=== PATIENT | male | born 1960 | race Caucasian/White ===

== ENCOUNTER 2016-09-22 10:54 | Emergency (ER) | payer OTHER ==
[~2016-09-22] VITALS: Ht 175.3 cm; Wt 81.7 kg
[~2016-09-22 10:54] MED LIST: NO HOME MEDS PO; NORCO 5/3251 TABLET PO; PERCOCET 5/31 TABLET PO
[2016-09-22] MEDS ORDERED: CLONAZEPAM1 MG PO (11:02)
[2016-09-22] MEDS ORDERED: OXYCODONE HCL10 MG PO (11:02)
[2016-09-22] MEDS ORDERED: METOPROLOL SUCC50 MG PO (11:02)
[2016-09-22] MEDS ORDERED: ZOLPIDEM TARTRA10 MG PO (11:02)
[2016-09-22 11:56] LABS: EOSINOPHIL COUNT 0.2 K/uL (0-0.3); HEMATOCRIT 54.4 % (38.0-50.0); IMMATURE GRANULOCYTE (%) 0.7 % (0.0-0.7); IMMATURE GRANULOCYTE COUNT 0.1 K/uL; INSTRUMENT ABS NEUTROPHIL CT 4.3 K/uL; LYMPHOCYTE COUNT 1.4 K/uL (1.0-2.8); MCH 32.6 PG (29.0-34.0); MCHC 34.2 G/DL (30.0-36.0); MCV 95.3 FL (86-99); MEAN PLAT.VOLUME 11.6 uM^3 (9.0-12.4); MONOCYTE COUNT 0.9 K/uL (0-0.8); NEUTROPHIL (%) 63.1 % (45-76); NEUTROPHIL COUNT 4.3 K/uL (1.8-6.4); PLATELET COUNT 147 K/uL (156-360); RBC DIS.WIDTH-CV 14.8 % (11.8-14.6); RED BLOOD COUNT 5.71 M/uL (4.00-5.50); WHITE BLOOD COUNT 6.8 K/uL (4.1-10.2)
[2016-09-22 11:57] LABS: CHLORIDE 105 mEq/L (99-109); POTASSIUM 3.7 mEq/L (3.7-5.4); SODIUM 139 mEq/L (136-147)
[2016-09-22 11:59] LABS: GLUCOSE 93 mg/dL (70-99)
[2016-09-22 12:00] LABS: ANION GAP 10 MEQ/L (2-14)
[2016-09-22 12:02] LABS: GFR ESTIMATE (CALCULATED) > 59 mL/min/
[2016-09-22 12:03] LABS: UREA NITROGEN (BUN) 10 mg/dL (9-23)
[2016-09-22 13:42] VITALS: BP 135/94
== END 2016-09-22 13:51 | disposition home or self-care (01) ==
LOC: EME → EDBD 10:54 → EME 10:54
PROVIDERS: Emergency Medicine
DX: S20.212A Contusion of left front wall of thorax, initial encounter (principal); R51 Headache; I10 Essential (primary) hypertension; W18.30XA Fall on same level, unspecified, initial encounter; Y92.009 Unspecified place in unspecified non-institutional (private) residence as the place of occurrence of the external cause; F17.200 Nicotine dependence, unspecified, uncomplicated
CPT/HCPCS: 70450; 71260; 74177; 80048; 85025; 99281; 99284; J7030